=== PATIENT | male | born 1980 | race Caucasian/White ===

== ENCOUNTER 2016-09-07 10:26 | Emergency (ER) | payer OTHER ==
[2016-09-07 10:31] VITALS: TEMP 97.7; BMI 41.5
[2016-09-07] MEDS ORDERED: SODIUM CHLORIDE 1,000 ML IV STA (11:28)
[2016-09-07] MEDS ORDERED: KETOROLAC TROMETHAMINE 30 MG/1 ML VIAL IVPUSH ONE (11:28)
[2016-09-07] MEDS ORDERED: KETOROLAC TROMETHAMINE 30 MG/1 ML VIAL ONE ×2 (11:30→11:31)
[2016-09-07 11:55] LABS: BASOPHIL 0.3 % (0-2.0); EOSINOPHIL 1.1 % (0-4.5); MCH 28.6 pg (25.7-33.7); MCHC 32.6 g/dl (32.0-35.9); MEAN CELL VOLUME 87.6 fl (80-96); MEAN PLT VOLUME 11.2 fl (7.5-11.1); NEUTROPHILS 80.3 % (42.8-82.8); PLATELET COUNT 140 K/MM3 (134-434); RDW 14.5 % (11.9-15.9); WHITE BLOOD COUNT 5.9 K/mm3 (4.0-10.0)
[2016-09-07 12:10] LABS: ALBUMIN 3.9 g/dl (3.4-5.0); ANION GAP 7 (8-16); BILIRUBIN,TOTAL 0.3 mg/dL (0.2-1.0); CALCIUM 8.6 mg/dL (8.5-10.1); CO2 27 mmol/L (21-32); CREATININE 1.1 mg/dL (0.7-1.3); GLUCOSE,RANDOM 150 mg/dL (74-106); SGOT/AST 18 U/L (15-37); SGPT/ALT 58 U/L (12-78)
[2016-09-07 12:20] LABS: ALK PHOS 68 U/L (45-117)
--- NOTE | 2016-09-07 12:22 | PDOC ---
History of Present Illness - General Chief Complaint: Pain, Acute Stated Complaint: ABD PAIN, VOMITING Time Seen by Provider: 09/07/16 11:09 History Source: Patient Exam Limitations: No Limitations - History of Present Illness Travel History: No Initial Comments: 09/07/16 11:25 36-year-old male presents to the emergency room with complaints of right suprapubic right lower quadrant pain that describes a cramping sensation associated with 2 episodes of diarrhea since this morning. Patient denies fever , chills, nausea, back pain, dysuria, history of UTIs, renal colic, colitis, or gallstones. Patient denies recent travel, recent illness or sedentary lifestyle. Timing/Duration: reports: constant Quality: reports: mild, moderate, cramping Abdominal Pain Onset Location: reports: RLQ, suprapubic Pain Radiation: reports: no radiation Activities at Onset: reports: none Aggravating Factors: improves with: None Alleviating Factors: improves with: None Past History - Past Medical History Allergies/Adverse Reactions: Allergies Allergy/AdvReac Type Severity Reaction Status Date / Time No Known Allergies Allergy Verified 09/07/16 10:28 Home Medications: Ambulatory Orders NK [No Known Home Medication] 09/07/16 Other medical history: denies - Immunization History Immunization Up to Date: Yes (no flu) - Psycho/Social/Smoking Cessation Hx Anxiety: No Suicidal Ideation: No Smoking History: Never smoked Have you smoked in the past 12 months: No Information on smoking cessation initiated: No Hx Alcohol Use: No Drug/Substance Use Hx: No Substance Use Type: None Patient Lives Alone: No Lives with/in: spouse/SO Review of Systems - Review of Systems Able to Perform ROS?: Yes Constitutional: No: Symptoms Reported HEENTM: No: Symptoms Reported Respiratory: No: Symptoms reported Cardiac (ROS): No: Symptoms Reported ABD/GI: Yes: Diarrhea, Abdominal cramping : No: Symptoms Reported Musculoskeletal: No: Symptoms Reported Integumentary: No: Symptoms Reported Neurological: No: Symptoms reported Hematologic/Lymphatic: No: Symptoms Reported *Physical Exam - Vital Signs Last Vital Signs Temp Pulse Resp BP Pulse Ox 97.7 F 78 20 147/95 98 09/07/16 10:28 09/07/16 10:28 09/07/16 10:28 09/07/16 10:28 09/07/16 10:28 - Physical Exam General Appearance: Yes: Nourished, Appropriately Dressed. No: Apparent Distress HEENT: positive: EOMI. negative: Pale Conjunctivae Neck: positive: Normal Thyroid, Supple Respiratory/Chest: positive: Lungs Clear, Normal Breath Sounds. negative: Respiratory Distress, Accessory Muscle Use Cardiovascular: positive: Regular Rhythm, Regular Rate. negative: Murmur Vascular Pulses: Dorsalis-Pedis (R): 2+, Doralis-Pedis (L): 2+ Gastrointestinal/Abdominal: positive: Soft, Tenderness (right suprapubic right lower quadrant right flank. Negative psoas, negative obturator sign, negative Rovsing) Musculoskeletal: negative: CVA Tenderness Extremity: positive: Normal Capillary Refill. negative: Pedal Edema Integumentary: positive: Normal Color, Warm, Moist Neurologic: positive: Motor Strength 5/5 (Ambulatory) ED Treatment Course - LABORATORY CBC & Chemistry Diagram: 09/07/16 11:43 09/07/16 11:43 - ADDITIONAL ORDERS Additional order review: 09/07/16 11:43 RBC 5.26 MCV 87.6 MCHC 32.6 RDW 14.5 MPV 11.2 H Neutrophils % 80.3 Lymphocytes % 13.6 Monocytes % 4.7 Eosinophils % 1.1 Basophils % 0.3 - Medications Given in the ED: ED Medications Discontinued Medications Generic Name Dose Route Start Last Admin Trade Name Freq PRN Reason Stop Dose Admin Ketorolac Tromethamine 30 mg 09/07/16 11:28 09/07/16 11:44 Toradol Injection - IVPUSH 09/07/16 11:29 30 mg ONCE ONE Administration Medical Decision Making - Medical Decision Making 09/07/16 11:29 Pt with right lower quadrant right suprapubic cramping since awakening this morning associated 2 episodes of diarrhea. Patient denies recent sick contacts, illness, renal colic or GI disorders. Patient had right lower quadrant tenderness with no guarding or rebound. Patient no CVA tenderness on exam patient concerning for either appendicitis versus colitis versus UTI/renal colic. Labs fluids, and urine ordered 09/07/16 12:31 Laboratory Tests 09/07/16 09/07/16 11:43 11:43 WBC 5.9 Hgb 15.0 Hct 46.1 Neutrophils % 80.3 Sodium 141 Potassium 4.1 Chloride 107 Carbon Dioxide 27 BUN 10 Creatinine 1.1 Random Glucose 150 H AST 18 ALT 58 Lipase 124 09/07/16 13:10 Laboratory Tests 09/07/16 11:43 Lactic Acid 1.917 09/07/16 13:54 Laboratory Tests 09/07/16 12:45 Urine Blood 3+ H Ur Leukocyte Esterase Negative Urine RBC 26 Urine WBC 1 Patient ordered for spiral CT . patient is currently asymptomatic. 09/07/16 14:[address] completed pleated with tiny 0.24 cm calcified stone in the distal right ureter just proximal the right UVJ consistent with recent stone passage. Patient be discharged home to drink plenty of fluids and to follow-up with urology. *DC/Admit/Observation/Transfer Diagnosis at time of Disposition: Calculus of right kidney - Discharge Dispostion Disposition: HOME Condition at time of disposition: Improved - Referrals Referrals: Michael Molina MD [Staff Physician] - - Patient Instructions Printed Discharge Instructions: DI for Kidney Stones Additional Instructions: Please drink plenty of water at least 2 L of water on a daily basis. May take Motrin for any discomfort. Please follow-up with referred urologist. If your symptoms return or worsen please return to the ED immediately.
[2016-09-07 13:34] LABS: URINE APPEARANCE CLEAR; URINE BILIRUBIN NEGATIVE (NEGATIVE); URINE COLOR LTYELLOW; URINE GLUCOSE (UA) NEGATIVE (NEGATIVE); URINE KETONE NEGATIVE (NEGATIVE); URINE LEUK ESTERASE NEGATIVE (NEGATIVE); URINE NITRITE NEGATIVE (NEGATIVE); URINE PROTEIN NEGATIVE (NEGATIVE); URINE UROBILINOGEN NEGATIVE E.U./dl (0.2-1.0)
[2016-09-07 13:37] LABS: URINE BLOOD 3+ (NEGATIVE)
[2016-09-07 13:43] LABS: URINE MUCUS RARE; URINE RBC 26 /hpf (0-3); URINE WBC 1 /hpf (3-5)
[2016-09-07 14:29] VITALS: BP 148/88; PULSE 68
== END 2016-09-07 14:39 | disposition home or self-care (01) ==
LOC: JER 10:26
PROC: 3E0333Z Introduction of Anti-inflammatory into Peripheral Vein, Percutaneous Approach (ICD-10-PCS; principal; 2016-09-07)
DX: N20.0 Calculus of kidney (principal)
CPT/HCPCS: 36415; 74176; 80053; 81003; 81015; 83605; 83690; 85025; 87086; 99283-25